=== PATIENT | female | born 1995 ===

== ENCOUNTER 2021-12-15 16:13 | Emergency (ER) | payer BC, SELFPAY ==
[2021-12-15 16:16] VITALS: BP 120/70; PULSE 80; TEMP 98.4; BMI 25.0
[2021-12-15] MEDS ORDERED: ONDANSETRON *ODT* 4 MG TABLET SL ONE (16:36)
[2021-12-15] MEDS ORDERED: ONDANSETRON *ODT* 4 MG TABLET ONE ×2 (16:37→16:43)
== END 2021-12-15 17:16 | disposition home or self-care (01) ==
LOC: JER 16:13
DX: R11.0 Nausea (principal); M79.10 Myalgia, unspecified site; J34.89 Other specified disorders of nose and nasal sinuses; Z11.52 Encounter for screening for COVID-19
CPT/HCPCS: 99283-25; C9803; U0003; U0005

== ENCOUNTER 2023-06-04 16:38 | Emergency (ER) | payer OTHER, BC ==
[2023-06-04 16:47] VITALS: BP 120/86; PULSE 86; RESP 17; TEMP 98.3; BMI 26.6
[2023-06-04 18:21] LABS: BASO % 0.1 % (0-2.0); EOS % 0.3 % (0-4.5); HEMATOCRIT 35.5 % (32.4-45.2); HEMOGLOBIN 11.6 GM/dL (10.7-15.3); MCH 25.7 pg (25.7-33.7); MCHC 32.7 g/dl (32.0-36.0); MEAN CELL VOLUME 78.6 fl (80-96); MEAN PLT VOLUME 7.9 fl (7.5-11.1); NEUT % 76.6 % (42.8-82.8); PLATELET COUNT 345 10^3/uL (134-434); RBC 4.51 M/mm3 (3.60-5.2); RDW 15.5 % (11.6-15.6); WHITE BLOOD COUNT 9.2 K/mm3 (4.0-10.0)
[2023-06-04 18:34] LABS: POTASSIUM 4.1 mmol/L (3.5-5.1)
[2023-06-04 18:36] LABS: CALCIUM 9.4 mg/dL (8.5-10.1)
[2023-06-04 18:37] LABS: BLOOD UREA NITROGEN 12.3 mg/dL (7-18)
[2023-06-04 18:38] LABS: URIC ACID 3.9 mg/dL (2.6-7.2)
[2023-06-04 18:39] LABS: CREATININE 0.8 mg/dL (0.55-1.3)
[2023-06-04 18:40] LABS: PHOSPHOROUS 3.7 mg/dL (2.5-4.9); TOT PROT 7.7 g/dl (6.4-8.2)
[2023-06-04 18:41] LABS: BILIRUBIN,TOTAL 0.2 mg/dL (0.2-1)
[2023-06-04 21:13] LABS: HIV INTERPRETATION NEGATIVE (NEGATIVE)
== END 2023-06-04 18:08 | disposition home or self-care (01) ==
LOC: JERFT 16:38
DX: Z77.21 Contact with and (suspected) exposure to potentially hazardous body fluids (principal)
CPT/HCPCS: 36415; 80053; 82465; 82977; 83615; 84100; 84478; 84550; 85025; 86704; 86803; 87340; 87389; 87517; 99283-25